=== PATIENT | male | born 2000 | race Caucasian/White ===

== ENCOUNTER 2020-07-14 00:30 | Emergency (ER) | payer OTHER, SELFPAY ==
[2020-07-14 00:25] VITALS: BP 156/83; PULSE 85; RESP 18; TEMP 36.6; O2SAT 98; BMI 18.4
[2020-07-14 00:28] VITALS: BMI 19.9
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
[2020-07-14 00:38] LABS: Basophils # 0.1 K/mm3 (0-0.2); Basophils % 0.7 % (0.1-2.0); Eosinophils # 0.1 K/mm3 (0.0-0.4); Hematocrit 45.9 % (42.0-52.0); Hemoglobin 15.8 g/dL (14.1-18.0); Lymphocytes # 6.1 K/mm3 (0.7-4.5); Lymphocytes % 48.8 % (10-50); Mean Corpuscular HGB Conc 34.4 g/dL (31.8-35.4); Mean Corpuscular Hemoglobin 29.2 pg (27.0-31.2); Mean Corpuscular Volume 84.8 fl (80-94); Monocytes # 0.7 K/mm3 (0.1-1.0); Monocytes % 5.9 % (1.7-9.3); Neutrophils # 5.4 K/mm3 (1.8-7.8); Neutrophils % 43.6 % (37.0-80.0); Platelet Count 359 K/mm3 (142-424); Red Blood Count 5.41 M/mm3 (4.60-6.20); Red Cell Distribution Width 12.9 % (11.5-17.5); White Blood Count 12.4 K/mm3 (4.5-13.0)
[2020-07-14 00:43] LABS: Alanine Aminotransferase 13 U/L (12-78); Albumin Level 4.8 g/dl (3.5-5.0); Albumin/Globulin Ratio 1.8 (1.1-1.8); Alkaline Phosphatase 66 U/L (38-126); Anion Gap 17.8 mEq/L (5-15); Aspartate Amino Transferase 28 U/L (17-59); Bilirubin,Total 0.4 mg/dl (0.2-1.3); Blood Urea Nitrogen 10 mg/dl (9-20); Calcium 9.1 mg/dl (8.4-10.2); Carbon Dioxide 25 mmol/L (22.0-30.0); Chloride 101 mmol/L (98-107); Creatinine Clearance Estimated 113 mL/min (50-200); Estimated Glomerular Filt Rate 108 ml/min (>60); GFR (African American) 130 ML/MIN (>60); Globulin 2.7 g/dL (1.3-3.2); Glucose 154 mg/dl (74-100); Sodium 141 mmol/L (136-145); Total Protein,Serum 7.5 g/dl (6.3-8.2)
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
[2020-07-14 00:44] LABS: Ethyl Alcohol 263 mg/dl (0-10)
[2020-07-14 00:46] LABS: Acetaminophen < 10 ug/ml (10-30); Salicylate < 1.0 mg/dL (2.0-20.0)
[2020-07-14 00:47] LABS: Potassium 2.8 mmoL/L (3.5-5.1)
[2020-07-14 02:00] VITALS: BP 123/76; PULSE 104; RESP 18; O2SAT 96
--- NOTE | 2020-07-14 02:01 | HMH.EDFALL ---
ED Disposition Clinical Impression: Fall Qualifiers: Encounter type: initial encounter Qualified Code(s): W19.XXXA - Unspecified fall, initial encounter Head contusion Qualifiers: Encounter type: initial encounter Contusion of head detail: unspecified part of head Qualified Code(s): S00.93XA - Contusion of unspecified part of head, initial encounter Facial laceration Qualifiers: Encounter type: initial encounter Qualified Code(s): S01.81XA - Laceration without foreign body of other part of head, initial encounter Alcohol intoxication Qualifiers: Complication of substance-induced condition: uncomplicated Qualified Code(s): F10.920 - Alcohol use, unspecified with intoxication, uncomplicated Disposition: Home, Self-Care Condition on Discharge: Good Instructions: DI for Laceration Repair Additional Instructions: suture out 7 days -8 days and see pcp for follow up Referrals: Provider,Referral, [Referring] - - Critical Care Critical Care Time: No Attestation: On 07/14/20, the high probability of a clinically significant, sudden or life threatening deterioration of the following system(s) required my full and direct attention, intervention and personal management. The time I documented below is in addition to time spent performing reported procedures but includes the following listed in this critical care notation. Medical Decision Making - Medical Records Medical records reviewed: Yes: I reviewed the patient's medical records. - Faraz Inquiry Pt receiving controlled substance: No Vital Signs: 07/14/20 00:25 Temperature 97.8 F Temperature Source Oral Pulse Rate [Right Brachial] 85 Respiratory Rate 18 Blood Pressure [Right Arm] 156/83 H Blood Pressure Mean [Right Arm] 107 Blood Pressure Source [Right Arm] Automatic Cuff Blood Pressure Position [Right Arm] Sitting 02 Sat by Pulse Oximetry 98 Oxygen Delivery Method Room Air - Lab Data Lab results reviewed: Yes: I reviewed the patient's lab results. Lab Results 07/14/20 00:25: WBC 12.4, RBC 5.41, Hgb 15.8, Hct 45.9, MCV 84.8, MCH 29.2, MCHC 34.4, RDW 12.9, Plt Count 359, MPV 8.0, Neut % (Auto) 43.6, Lymph % (Auto) 48.8, [place] % (Auto) 5.9, Eos % (Auto) 1.0, Baso % (Auto) 0.7, Neut # (Auto) 5.4, Lymph # (Auto) 6.1 H, [place] # (Auto) 0.7, Eos # (Auto) 0.1, Baso # (Auto) 0.1 07/14/20 00:25: Sodium 141, Potassium 2.8 L*, Chloride 101, Carbon Dioxide 25, Anion Gap 17.8 H, BUN 10, Creatinine 0.90, Estimated Creat Clear 113, Estimated GFR 108, Est GFR ( Amer) 130, Glucose 154 H, Calcium 9.1, Total Bilirubin 0.4, AST 28, ALT 13, Alkaline Phosphatase 66, Total Protein 7.5, Albumin 4.8, Globulin 2.7, Albumin/Globulin Ratio 1.8, Salicylates < 1.0 L, Acetaminophen < 10 L 07/14/20 00:25: Plasma/Serum Alcohol 263 H Result diagrams: 07/14/20 00:25 07/14/20 00:25 Orders (Tests/Meds): ED MEDICATIONS Discontinued Medications Generic Name Dose Route Start Last Admin Trade Name Freq PRN Reason Stop Dose Admin Ondansetron HCl 4 mg 07/14/20 01:14 07/14/20 01:15 Ondansetron 4mg/2ml Vial IV 07/14/20 01:15 4 mg ONCE ONE Administration - Radiology Data #1 Image(s): Chest, Pelvis Image Reviewed: Yes I reviewed the patient's radiology image Preliminary Findings: No Fracture Seen - CT Data CT Scan: Head, C-Spine, T-Spine, L-Spine, Other (facial) Time Received: 03:[address] Reviewed: Yes: I have viewed the radiologist's interpretation Preliminary Findings: No Fracture Seen Medical Decision Narrative: no fx and no focal changes with facial lac Fall HPI - General Chief Complaint: Fall Stated Complaint: laceration Time Seen by Provider: 07/14/20 01:00 Mode of Arrival: EMS Source of Information: Patient, EMS, Medical Record Limitations: No Limitations Description of Symptoms (Recalled from ER Triage Doc. by RN): [place] stumbling around, appearing to be under the influence. ems and pd and respond
[2020-07-14 02:30] VITALS: BP 127/75; PULSE 97; O2SAT 97
[2020-07-14 03:00] VITALS: BP 140/92; PULSE 107; RESP 18; O2SAT 98
[2020-07-14 03:14] VITALS: BP 138/82; PULSE 98; RESP 18; TEMP 36.6; O2SAT 98
== END 2020-07-14 03:16 | disposition home or self-care (01) ==
PROVIDERS: Emergency Provider Emergency Medicine; PCP Emergency Medicine
DX: S01.81XA Laceration without foreign body of other part of head, initial encounter (principal); S00.93XA Contusion of unspecified part of head, initial encounter; F10.920 Alcohol use, unspecified with intoxication, uncomplicated; V19.3XXA Pedal cyclist (driver) (passenger) injured in unspecified nontraffic accident, initial encounter; Y92.414 Local residential or business street as the place of occurrence of the external cause; R51.9 Headache, unspecified
CPT/HCPCS: 12013; 70450; 70486; 71045; 72125; 72128; 72131; 72170; 80053; 80329; 85025; 96374; 99283; J2405

== ENCOUNTER 2021-03-03 12:32 | Emergency (ER) | payer OTHER, SELFPAY ==
[2021-03-03 13:18] VITALS: BP 135/77; PULSE 111; RESP 20; TEMP 37; O2SAT 99; BMI 20.3
[2021-03-03 13:19] VITALS: BMI 20.3
--- NOTE | 2021-03-03 13:21 | PC.NURSE ---
Covid Swab sent to lab
[2021-03-03 13:30] VITALS: BP 133/83
--- NOTE | 2021-03-03 13:39 | HMH.EDGENADL ---
ED Disposition Clinical Impression: Suspected COVID-19 virus infection Disposition: Home, Self-Care Condition on Discharge: Good Instructions: DI for COVID-19 (Suspected or Confirmed ) Additional Instructions: Quarantine yourself until you obtain your COVID-19 test result. You will be called with the result. Rest, drink plenty of fluids. Tylenol or Ibuprofen for fever and/or aches and pains. If your test is positive, follow the treatment and isolation instructions below. Monitor your symptoms. IF YOU HAVE AN EMERGENCY WARNING SIGN (INCLUDING TROUBLE BREATHING), SEEK EMERGENCY MEDICAL CARE IMMEDIATELY. COVID-19 Isolation: People with COVID-19 should isolate for 5 days. Then if they are asymptomatic (no symptoms) or their symptoms are resolving (without fever for 24 hours), follow that by 5 days of wearing a mask when around others to minimize the risk of infecting people you encounter. If you test positive for COVID-19 and never develop symptoms, day 0 is the day of your positive viral test (based on the date you were tested) and day 1 is the first full day after your positive test. If you develop symptoms after testing positive, your 5-day isolation period must start over. Day 0 is your first day of symptoms. Day 1 is the first full day after your symptoms developed. What to do: Stay in a separate room from other household members, if possible. Use a separate bathroom, if possible. Avoid contact with other members of the household and pets. Don?t share personal household items, like cups, towels, and utensils. Wear a mask when around other people if able. Referrals: Provider,Referral, [Primary Care Provider] - - Critical Care Critical Care Time: No Attestation: On 03/03/21, the high probability of a clinically significant, sudden or life threatening deterioration of the following system(s) required my full and direct attention, intervention and personal management. The time I documented below is in addition to time spent performing reported procedures but includes the following listed in this critical care notation. Medical Decision Making - Faraz Inquiry Pt receiving controlled substance: No Vital Signs: 03/03/21 13:18 03/03/21 13:30 Temperature 98.6 F Temperature Source Oral Pulse Rate [Left Radial] 111 H Respiratory Rate 20 Blood Pressure 133/83 Blood Pressure [Right Arm] 135/77 Blood Pressure Mean 100 Blood Pressure Mean [Right Arm] 96 Blood Pressure Source [Right Arm] Automatic Cuff Blood Pressure Position [Right Arm] Sitting 02 Sat by Pulse Oximetry 99 Oxygen Delivery Method Room Air - Lab Data Lab Results 03/03/21 13:45: Influenza Type A Ag Negative, Influenza Type B Ag Negative 03/03/21 13:45: Group A Strep Rapid Negative Orders (Tests/Meds): ORDERS Category Date Time Status Covid-19 Nasal PCR ([facility]) Routine Lab 03/03/21 13:20 Received Strep Screen Confirmation Stat Micro 03/03/21 13:45 Received General Adult HPI - General Chief complaint: Headache Stated complaint: h/a, congestion, runny nose, sore throat Time Seen by Provider: 03/03/21 13:39 Mode of Arrival: Ambulatory Limitations: No Limitations Description of Symptoms (Recalled from ER Triage Doc. 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 - History of Present Illness HPI narrative: States that he woke up in the middle of the night with headache, body aches, sore throat, rhinorrhea. Mild cough. No vomiting or diarrhea. No shortness of breath. No known exposure to any illnesses including COVID-19. He has not been vaccinated against COVID-19. - Related Data Home Medications Medication Instructions Recorded Confirmed No Known Home Medications 07/06/20 07/06/20 Allergies Allergy/AdvReac Type Severity Reaction Status Date / Time No Known Allergies Allergy Verified 07/06/20 09:39 [facility] History - Hepatitis A Screen Drug use history?: No High ri
[2021-03-03 14:09] LABS: Strep Scrn Group A (Rapid) Negative (Negative)
[2021-03-03 14:39] VITALS: BP 130/70; PULSE 70; RESP 16; TEMP 36.8; O2SAT 98
== END 2021-03-03 14:40 | disposition home or self-care (01) ==
PROVIDERS: Emergency Provider Emergency Medicine
DX: U07.1 COVID-19 (principal); J02.9 Acute pharyngitis, unspecified
CPT/HCPCS: 87275; 87276; 87430; 99282; C9803; U0003; U0005

== ENCOUNTER 2024-08-02 13:26 | Emergency (ER) | payer MEDICAID, SELFPAY ==
[2024-08-02 13:33] VITALS: BP 127/84; PULSE 137; RESP 20; TEMP 37; O2SAT 95; BMI 20.9
--- NOTE | 2024-08-02 13:36 | ED_ITS ---
Discharge Plan Disposition Patient Disposition: Home, Self-Care Condition: Good Prescriptions Prescriptions: No Action No Known Home Medications Referrals Follow up/Referrals: Provider,Referral, MD [Primary Care Provider, Medical] - See instructions Activity Restrictions/Add. Instructions Additional Instructions/Restrictions: This is likely a viral illness. Patient to drink plenty of fluids, take ibuprofen or Tylenol for symptom control. May take [id number] Delsym or Robitussin for cough. If not improving may follow-up with PCP. Clinical Impressions Clinical Impression: Viral infection Stand Alone Forms Stand Alone Forms: Work/School Release Instructions Patient Instructions: DI for Viral Upper Respiratory Infection -- Adult Print Language Print Language: Slovak Discharge ED Provider: Slade Gomes General Adult HPI <America Fox (ED), [employer] - Last Filed: 08/02/24 15:28> General Chief complaint: Upper Respiratory Infection Stated complaint: sore throat headache cough Time Seen by Provider: 08/02/24 13:28 History of Present Illness HPI narrative: 24-year-old male presents to the ED today for complaint of sore throat, congestion, cough with productive sputum that is green, yellow all of this started on Thursday. No fevers or chills. No nausea, vomiting or diarrhea. He did not want care from the [employer] which is his work. No other symptoms today. Related Data Home Medications ?Medication ?Instructions ?Recorded ?Confirmed No Known Home Medications 07/06/2006/10 Allergies Allergy/AdvReac Type Severity Reaction Status Date / Time No Known Allergies Allergy Verified 07/06/20 09:39 PFSH <America Fox (ED), [employer] - Last Filed: 08/02/24 15:28> [facility] Disclaimer: The information contained in this section may have been updated after the patient was seen, as this information can be updated by other users. Medical History (Updated 08/02/24 @ 14:42 by America Fox (ED), [employer]) ADHD Scoliosis Social History (Updated 08/02/24 @ 15:28 by America Fox (ED), [employer]) Smoking Status: Current every day smoker alcohol intake: former current occupational status: employed Travel in the last 8 weeks?: None Have you lived/traveled outside [place] in past 30 days?: No Contact w/someone who lives/traveled outside US past 30 days?: No Exposure to someone with infectious disease in past 14 days?: No Do you have a fever (greater than 100.4 F or 38 C)?: No Have you tested positive for COVID-19?: No Exposed to someone with COVID-19 in past 14 days?: No Do you have a sore throat?: Yes Do you have a cough?: Yes Do you have any weakness?: No Do you have any diarrhea?: No Are you experiencing any unusual bleeding?: No Do you have any muscle aches/pain?: No Do you have any abdominal pain?: No Are you experiencing loss of taste or smell?: No Other Medical History Have you received the Flu Vaccine for this season: No Have you received the Pneumonia Vaccine: No <America Fox (ED), [employer] - Last Filed: 08/02/24 15:28> ROS Obtained: Yes Systems reviewed as appropriate & no additional complaints except as documented Constitutional Constitutional: Reports as per HPI Physical Exam <America Fox (ED), [employer] - Last Filed: 08/02/24 15:28> General General appearance: alert and in no apparent distress Head Head exam: atraumatic and normocephalic Eye Eye exam: Present PERRL and EOMI ENT ENT exam: Present normal oropharynx and mucous membranes moist Neck Neck exam: Present full ROM and trachea midline Respiratory Respiratory exam: Present normal lung sounds bilaterally Cardiovascular Cardiovascular exam: Present regular rate, normal rhythm, normal heart sounds, +S1 and +S2 Abdominal Exam Abdominal exam: Present soft and normal bowel sounds Extremities Exam Extremities exam: Present normal inspection, full ROM and normal capillary refill Neurological Exam Neurological exam: Present alert, oriented X3 and normal gait Skin Skin exam: Present warm, dry and intact Medical Decision Making <America Fox (ED), [employer] - Last Filed: 08/02/24 15:28> Medical Records Screening: Per USPSTF and CDC recommendations, given the prevalence of disease in our region, it is our hospital?s policy to screen for HIV and viral Hepatitis for all patients aged 18 and over and those with ongoing risk factors. Faraz Inquiry Pt receiving controlled substance: No Faraz was queried for this patient: No Vital Signs: 08/02/24 13:33 08/02/24 13:45 08/02/24 14:14 Temperature 98.6 F Temperature Source Oral Pulse Rate 120 H 107 H Pulse Rate [Right] 137 H Respiratory Rate 20 Blood Pressure 155/106 H Blood Pressure [Right Arm] 127/84 Blood Pressure Mean [Right Arm] 98 Blood Pressure Source Blood Pressure Position 02 Sat by Pulse Oximetry 95 94 L Oxygen Delivery Method Room Air 08/02/24 14:48 Temperature 98.8 F Temperature Source Oral Pulse Rate 90 Pulse Rate [Right] Respiratory Rate 20 Blood Pressure 143/97 H Blood Pressure [Right Arm] Blood Pressure Mean [Right Arm] Blood Pressure Source Automatic Cuff Blood Pressure Position Supine 02 Sat by Pulse Oximetry Oxygen Delivery Method Room Air Lab Data Lab Results 08/02/24 13:37: Group A Strep Rapid Negative 08/02/24 13:58: SARS-CoV-2 (PCR) Not detected, Influenza A Untype (PCR) Not detected, Influenza Type B (PCR) Not detected Orders (Tests/Meds): ORDERS Category Date Time Status Rapid PCR Covid and Flu A/B Stat Lab 08/02/24 13:58 Completed Rapid Strep Scrn Group A [Strep Scrn Group A (Rapid)] Lab 08/02/24 13:37 Completed Stat Strep Screen Confirmation Stat Micro 08/02/24 13:37 Received Medical Decision Narrative: patient is a 24-year-old male presenting to the emergency department for evaluation of sore throat, congestion and cough. Patient is hemodynamically stable and nontoxic-appearing upon arrival, afebrile. Differential diagnosis includes viral illness, strep, among other. Workup will be conducted with strep swab and COVID flu swab. Patient did not require any initial interventions. His COVID flu and strep swabs were negative. This is likely a viral illness. Patient can do supportive therapy at home. Patient will be discharged, patient has stable vital signs. Safe for discharge home. <Slade Gomes MD - Last Filed: 08/03/24 10:34> Vital Signs: 08/02/24 13:33 08/02/24 13:45 08/02/24 14:14 Temperature 98.6 F Temperature Source Oral Pulse Rate 120 H 107 H Pulse Rate [Right] 137 H Respiratory Rate 20 Blood Pressure 155/106 H Blood Pressure [Right Arm] 127/84 Blood Pressure Mean [Right Arm] 98 Blood Pressure Source Blood Pressure Position 02 Sat by Pulse Oximetry 95 94 L Oxygen Delivery Method Room Air 08/02/24 14:48 Temperature 98.8 F Temperature Source Oral Pulse Rate 90 Pulse Rate [Right] Respiratory Rate 20 Blood Pressure 143/97 H Blood Pressure [Right Arm] Blood Pressure Mean [Right Arm] Blood Pressure Source Automatic Cuff Blood Pressure Position Supine 02 Sat by Pulse Oximetry Oxygen Delivery Method Room Air Lab Data Lab Results 08/02/24 13:37: Group A Strep Rapid Negative 08/02/24 13:58: SARS-CoV-2 (PCR) Not detected, Influenza A Untype (PCR) Not detected, Influenza Type B (PCR) Not detected Orders (Tests/Meds): ORDERS Category Date Time Status Rapid PCR Covid and Flu A/B Stat Lab 08/02/24 13:58 Completed Rapid Strep Scrn Group A [Strep Scrn Group A (Rapid)] Lab 08/02/24 13:37 Completed Stat Strep Screen Confirmation Stat Micro 08/02/24 13:37 Received Medical Decision Narrative: patient is a 24-year-old male presenting to the emergency department for evaluation of sore throat, congestion and cough. Patient is hemodynamically stable and nontoxic-appearing upon arrival, afebrile. Differential diagnosis includes viral illness, strep, among other. Workup will be conducted with strep swab and COVID flu swab. Patient did not require any initial interventions. His COVID flu and strep swabs were negative. This is likely a viral illness. Patient can do supportive therapy at home. Patient will be discharged, patient has stable vital signs. Safe for discharge home. I was consulted by the THOM, and we discussed the complexity of the problems being addressed. I approved the treatment and management plan for this patient's care in the Emergency Department, thus performing a substantive portion of the medical decision making. Slade Gomes MD Critical Care <America Fox (ED), [employer] - Last Filed: 08/02/24 15:28> Critical Care Time Critical Care Time: No
[2024-08-02 13:45] VITALS: BP 155/106; PULSE 120; O2SAT 94
[2024-08-02 14:02] LABS: Coronavirus 19, PCR Not Detected (NotDetected); Influenza A, PCR Not Detected (NotDetected); Influenza B, PCR Not Detected (NotDetected)
[2024-08-02 14:14] VITALS: PULSE 107
[2024-08-02 14:19] LABS: Strep Scrn Group A (Rapid) Negative (Negative)
[2024-08-02 14:48] VITALS: BP 143/97; PULSE 90; RESP 20; TEMP 37.1; O2SAT 97
== END 2024-08-02 14:49 | disposition home or self-care (01) ==
PROVIDERS: Nurse Practitioner; Emergency Provider Emergency Medicine
DX: R07.0 Pain in throat (principal); R09.81 Nasal congestion; R05.9 Cough, unspecified; B34.9 Viral infection, unspecified
CPT/HCPCS: 87430; 87636; 99283